=== PATIENT | female | born 1995 | race African-American/Black ===

== ENCOUNTER 2021-05-14 17:36 | Emergency (ER) | payer OTHER ==
[2021-05-14 17:52] VITALS: BP 116/80; PULSE 98; TEMP 98.1; BMI 32.1
[2021-05-14] MEDS ORDERED: IBUPROFEN 600 MG TABLET (FP) PO ONE ×2 (18:44→18:56)
[2021-05-14] MEDS ORDERED: CYCLOBENZAPRINE HCL 10 MG TABLET (FP) PO ONE (18:44)
[2021-05-14] MEDS ORDERED: CYCLOBENZAPRINE HCL 10 MG TABLET (FP) ONE ×2 (18:56→18:57)
== END 2021-05-14 19:08 | disposition home or self-care (01) ==
LOC: JER 17:36
DX: M26.602 Left temporomandibular joint disorder, unspecified (principal)
CPT/HCPCS: 99283-25